=== PATIENT | male | born 1955 | race Caucasian/White ===

== ENCOUNTER 2016-06-09 14:24 | Emergency (ER) | payer MEDICARE, BC ==
[2016-06-09 15:36] LABS: Basophils # (A) 0.1 k/uL (0-0.2); Basophils % (A) 1 %; CH 27.7; CHCM 35.2; Eosinophils # (A) 0.2 k/uL (0-0.7); Eosinophils % (A) 3 %; HCT 43.1 % (39.0-53.0); HDW 3.07; HGB 14.5 gm/dL (13.0-17.5); Luc # (Auto) 0.17; Luc % (Auto) 3; Lymphocytes # (A) 0.8 k/uL (1.0-4.8); Lymphocytes % (A) 14 %; MCH 26.7 pg (25.0-35.0); MCHC 33.7 g/dL (31.0-37.0); MCV 79.3 fL (80.0-100.0); Mean Platelet Volume 7.3; Monocytes # (A) 0.5 k/uL (0-1.0); Monocytes % (A) 9 %; Neutrophils # (A) 3.7 k/uL (1.3-7.7); Neutrophils % (A) 70 %; RBC 5.43 m/uL (4.30-5.90); RDW 13.5 % (11.5-15.5); WBC 5.3 k/uL (3.8-10.6); WBC (Perox) 4.97
--- NOTE | 2016-06-09 15:39 | XR ---
EXAMINATION TYPE: XR chest 2V DATE OF EXAM: 06/09/2016 3:34 PM COMPARISON: NONE TECHNIQUE: PA and lateral views submitted. HISTORY: Shortness of breath FINDINGS: Chronic rib deformities are seen. Arthropathy of the shoulders. Findings are suspicious for a 1.5 cm left upper lobe lung mass. Subsegmental left perihilar consolidation seen. No pleural effusion or pne umothorax. IMPRESSION: 1. Left perihilar infiltrate with findings suspicious for a vague mass in the left upper lobe. Recomm end CT of the chest.
[2016-06-09 15:46] LABS: Anion Gap 15 mmol/L; Blood Urea Nitrogen 23 mg/dL (9-20); Calcium 9.6 mg/dL (8.4-10.2); Carbon Dioxide 27 mmol/L (22-30); Chloride 104 mmol/L (98-107); Glucose 95 mg/dL (74-99); Magnesium 1.9 mg/dL (1.6-2.3); Non-African American GFR(MDRD) 52 (>60 ml/min/1.73 sqM); Potassium 3.9 mmol/L (3.5-5.1); Sodium 146 mmol/L (137-145)
[2016-06-09 15:59] LABS: Appearance,Urine Clear (Clear); Bilirubin,Urine Negative (Negative); Glucose,Urine (UA) Negative (Negative); Ketones,Urine Negative (Negative); Leukocyte Esterase,Urine Negative (Negative); Nitrite,Urine Negative (Negative); Protein,Urine Trace (Negative); Specific Gravity,Urine 1.017 (1.001-1.035); UA Billing (MACRO vs. MICRO) CHEM; Urobilinogen,Urine <2.0 mg/dL (<2.0)
[2016-06-09] MEDS ORDERED: AZITHROMYCIN 500 MG in SODIUM CHLORIDE 0.9% 250 ML IVPB STA (16:27)
[2016-06-09 16:30] VITALS: RESP 16
[2016-06-09] MEDS ORDERED: SODIUM CHLORIDE 0.9% 1,000 ML IV ONE (16:42)
--- NOTE | 2016-06-09 16:42 | ED ---
General Adult HPI - General Chief complaint: Upper Respiratory Infection Stated complaint: Fluid on lungs Time Seen by Provider: 06/09/16 14:55 Source: patient, RN notes reviewed Mode of arrival: ambulatory Limitations: no limitations - History of Present Illness Initial comments: 60-year-old male presenting for shortness breath. Patient states that he has had cough and shortness of breath and fevers and chills for the past 5 days. He states he followed up at an urgent care today who did chest x-ray with abnormality and recommended he go to the ER for further evaluation. He denies any chest pain associated. States he did have a flu swab at the urgent care which was negative. He also states that over the past 2-3 weeks he has had bilateral lower extremity swelling. He denies any history of COPD or CHF. He denies any tobacco use. He denies any recent antibiotic or steroid use. - Related Data Home Medications Medication Instructions Recorded Confirmed Aspirin 81 mg PO DAILY 12/11/15 06/09/16 Labetalol HCl [Trandate] 300 mg PO BID 12/11/15 06/09/16 Lisinopril-Hctz 20-25 mg 1 tab PO DAILY 12/11/15 06/09/16 [Zestoretic 20-25] [place]-3 Fatty Acids/Fish Oil [Fish 1 tab PO DAILY 12/11/15 06/09/16 Oil 1,000 mg Softgel] amLODIPine BESYLATE [Norvasc] 5 mg PO HS 12/11/15 06/09/16 Previous Rx's Medication Instructions Recorded Azithromycin [Zithromax] 250 mg PO DAILY #4 tab 06/09/16 Allergies Allergy/AdvReac Type Severity Reaction Status Date / Time codeine AdvReac Nausea & Verified 06/09/16 15:27 Vomiting metoclopramide HCl AdvReac Nausea & Verified 06/09/16 15:27 [From Reglan] Vomiting Review of Systems ROS Statement: Those systems with pertinent positive or pertinent negative responses have been documented in the HPI. ROS Other: All systems not noted in ROS Statement are negative. Past Medical History Past Medical History: Hypertension, Sleep Apnea/CPAP/BIPAP Additional Past Medical History / Comment(s): kidney stones, uses CPAP History of Any Multi-Drug Resistant Organisms: None Reported Past Surgical History: Orthopedic Surgery Additional Past Surgical History / Comment(s): right knee surg. Past Anesthesia/Blood Transfusion Reactions: No Reported Reaction Past Psychological History: No Psychological Hx Reported Smoking Status: Never smoker Past Alcohol Use History: None Reported Past Drug Use History: None Reported - Past Family History Mother Family Medical History: No Reported History General Exam - General Exam Comments Initial Comments: General: Awake and Alert. No acute distress. Does not appear acutely ill. Eyes: MONIKA, EOM intact. No nystagmus. No scleral icterus. HENT: Atraumatic, normocephalic. Mucous membranes moist. Trachea midline. Neck: The neck is supple, there is no tenderness or JVD. Cardiovascular: Regular rate and rhythm. No murmur, rub, or gallop is appreciated. Distal pulses intact. Lateral lower extremity edema 1+ pitting. Respiratory: Lungs are clear to auscultation bilaterally. No wheezes, rales. Left-sided rhonchi. No respiratory distress. Gastrointestinal: Soft, Nontender. No rebound or guarding. Non-distended. No masses or organomegaly noted. No CVA tenderness. Musculoskeletal: No tenderness. Normal ROM. No gross deformity. No strength deficits. Neurological: A&Ox3. CN II-XII grossly intact, There are no obvious motor or sensory deficits. Coordination appears grossly intact. Speech is normal. Skin: Skin is warm and dry and no rashes or lesions are noted. Psychiatric: Cooperative, appropriate mood & affect, normal judgment. Limitations: no limitations Course Vital Signs 06/09/16 06/09/16 14:44 16:28 Temperature 99.1 F 99.1 F Pulse Rate 90 76 Respiratory 18 16 Rate Blood Pressure 105/63 124/77 O2 Sat by Pulse 97 97 Oximetry EKG Findings - EKG Comments: EKG Findings:: EKG 15:53. Normal sinus rhythm. Rate 67. IL 184. QRS 86. QT/ QTC 370/390. Normal axis. No STEMI. Nonspecific EKG. Medical Decision Making - Medical Decision Making 60-year-old male presenting for cough and fevers. Vitals stable on initial exam. No acute respiratory distress. History concerning for pneumonia. Urgent care note states possible mass in the chest and chest x-ray requiring further follow-up. Chest x-ray with abnormal finding recommending CT follow-up. CT chest was performed showing left lower lobe pneumonia. There is an incidental pulmonary nodule as well. Lab work is stable CBC. BMP with mild abnormality and evidence of a care, likely secondary to hypovolemia given IVF during course in ED. Single troponin was negative and setting of possible sepsis evaluation. BNP is negative. Patient reevaluated states he is feeling well. Updated on results and imaging. Discussed CT findings of incidental aortic aneurysm and pulmonary nodule and need for repeat chest x-ray in 6 months to reevaluate. Discussed evidence of pneumonia and plan for treatment. Patient started on antibiotics for CAP in the ED. He has no significant risk factors for HCAP at this time. He does not appear septic or hypoxic requiring admission at this time. Patient is agreeable with plan for discharge home. Discussed concerning signs symptoms for immediate return to the ED. Discussed close PCP follow-up for further management of mild LE swelling. Low suspicion of DVT/PE at this time given history of LE swelling in the past, although discussed no specific testing on CT for this at this time. Patient is agreeable to plan and discharge home. - Lab Data Result diagrams: 06/09/16 15:20 06/09/16 15:20 Lab Results 06/09/16 06/09/16 06/09/16 Range/Units 15:20 15:20 15:20 WBC 5.3 (3.8-10.6) k/uL RBC 5.43 (4.30-5.90) m/uL Hgb 14.5 (13.0-17.5) gm/dL Hct 43.1 (39.0-53.0) % MCV 79.3 L (80.0-100.0) fL MCH 26.7 (25.0-35.0) pg MCHC 33.7 (31.0-37.0) g/dL RDW 13.5 (11.5-15.5) % Plt Count 271 (150-450) k/uL Neutrophils % 70 % Lymphocytes % 14 % Monocytes % 9 % Eosinophils % 3 % Basophils % 1 % Neutrophils # 3.7 (1.3-7.7) k/uL Lymphocytes # 0.8 L (1.0-4.8) k/uL Monocytes # 0.5 (0-1.0) k/uL Eosinophils # 0.2 (0-0.7) k/uL Basophils # 0.1 (0-0.2) k/uL Sodium 146 H (137-145) mmol/L Potassium 3.9 (3.5-5.1) mmol/L Chloride 104 (98-107) mmol/L Carbon Dioxide 27 (22-30) mmol/L Anion Gap 15 mmol/L BUN 23 H (9-20) mg/dL Creatinine 1.40 H (0.66-1.25) mg/dL Est GFR (MDRD) Af Amer >60 (>60 ml/min/1.73 sqM) Est GFR (MDRD) Non-Af 52 (>60 ml/min/1.73 sqM) Glucose 95 (74-99) mg/dL Calcium 9.6 (8.4-10.2) mg/dL Magnesium 1.9 (1.6-2.3) mg/dL Troponin I (0.000-0.034) ng/mL NT-Pro-B Natriuret Pep 45 pg/mL Urine Color Urine Appearance (Clear) Urine pH (5.0-8.0) Ur Specific [place] (1.001-1.035) Urine Protein (Negative) Urine Glucose (UA) (Negative) Urine Ketones (Negative) Urine Blood (Negative) Urine Nitrite (Negative) Urine Bilirubin (Negative) Urine Urobilinogen (<2.0) mg/dL Ur Leukocyte Esterase (Negative) 06/09/16 06/09/16 Range/Units 15:20 15:42 WBC (3.8-10.6) k/uL RBC (4.30-5.90) m/uL Hgb (13.0-17.5) gm/dL Hct (39.0-53.0) % MCV (80.0-100.0) fL MCH (25.0-35.0) pg MCHC (31.0-37.0) g/dL RDW (11.5-15.5) % Plt Count (150-450) k/uL Neutrophils % % Lymphocytes % % Monocytes % % Eosinophils % % Basophils % % Neutrophils # (1.3-7.7) k/uL Lymphocytes # (1.0-4.8) k/uL Monocytes # (0-1.0) k/uL Eosinophils # (0-0.7) k/uL Basophils # (0-0.2) k/uL Sodium (137-145) mmol/L Potassium (3.5-5.1) mmol/L Chloride (98-107) mmol/L Carbon Dioxide (22-30) mmol/L Anion Gap mmol/L BUN (9-20) mg/dL Creatinine (0.66-1.25) mg/dL Est GFR (MDRD) Af Amer (>60 ml/min/1.73 sqM) Est GFR (MDRD) Non-Af (>60 ml/min/1.73 sqM) Glucose (74-99) mg/dL Calcium (8.4-10.2) mg/dL Magnesium (1.6-2.3) mg/dL Troponin I <0.012 (0.000-0.034) ng/mL NT-Pro-B Natriuret Pep pg/mL Urine Color Yellow Urine Appearance Clear (Clear) Urine pH 5.0 (5.0-8.0) Ur Specific [place] 1.017 (1.001-1.035) Urine Protein Trace H (Negative) Urine Glucose (UA) Negative (Negative) Urine Ketones Negative (Negative) Urine Blood Negative (Negative) Urine Nitrite Negative (Negative) Urine Bilirubin Negative (Negative) Urine Urobilinogen <2.0 (<2.0) mg/dL Ur Leukocyte Esterase Negative (Negative) - EKG Data -: EKG Interpreted by Ct EKG shows normal: sinus rhythm Rate: normal - Radiology Data Radiology results: report reviewed, image reviewed Disposition Clinical Impression: CAP (community acquired pneumonia), Pulmonary nodule Disposition: HOME SELF-CARE Condition: Stable Instructions: Community Acquired Pneumonia (ED) Additional Instructions: You had incidental findings on your CT scan of the chest of an acending aortic aneurysm and pulmonary nodule. Please follow up with your primary doctor to monitor these findings as discussed. Prescriptions: Azithromycin [Zithromax] 250 mg PO DAILY #4 tab Referrals: Riccardo Dan MD [Primary Care Provider] - 1-2 days Time of Disposition: 18:30
--- NOTE | 2016-06-09 17:09 | CT ---
EXAMINATION TYPE: CT chest wo con DATE OF EXAM: 06/09/2016 4:57 PM COMPARISON: Radiograph same day HISTORY: 60-year-old male chest congestion. TECHNIQUE: Contiguous axial scanning of the chest without IV contrast. Coronal and sagittal reconstru ctions performed. CT DLP: 656.00 mGycm Automated exposure control for dose reduction was used. FINDINGS: The heart is borderline enlarged without pericardial effusion. Ascending aorta ectatic at 3.7 cm. Conventional arch vessel branching anatomy. There is aneurysm of t he upper descending thoracic aorta at 3.6 cm and ectasia of the lower descending thoracic aorta at 2. 8 cm. No thoracic lymphadenopathy by CT size criteria. Strandy atelectasis or scarring at the basilar anterior right middle lobe. There is additional strand y atelectasis or scarring posterior right upper lung but with focal consolidation superior segment le ft lower lobe, axial images 22 through 25. 5 mm pulmonary nodule posterior left lower lobe axial image 36 which should be reassessed at follow-u p. Small hiatal hernia. Visualized upper abdomen shows a 1.2 cm left adrenal gland nodule with density of -12 Hounsfield unit s compatible with a lipid rich adrenal adenoma. Hilar splenule. Bones: Bridging anterior endplate spondylosis especially within the mid to lower thoracic spine sugge stive of DISH. Multiple chronic right-sided rib fracture deformities healed in varying degrees of dis placement. IMPRESSION: 1. STRANDY AREAS OF ATELECTASIS OR SCARRING WITHIN THE LUNGS THOUGH WITH FOCAL CONSOLIDATION WITHIN T HE SUPERIOR SEGMENT LEFT LOWER LOBE SUSPICIOUS FOR PNEUMONIA. 2. A 5 MM LEFT LOWER LOBE PULMONARY NODULE. SIX-MONTH FOLLOW-UP EXAM RECOMMENDED TO REASSESS. 3. 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 4. SMALL HIATAL HERNIA AND A 1.2 CM BENIGN LEFT ADRENAL ADENOMA.
[2016-06-09 19:25] VITALS: BP 129/74; PULSE 78; TEMP 98.9
== END 2016-06-09 19:24 | disposition home or self-care (01) ==
LOC: EC 14:24
DX: J18.9 Pneumonia, unspecified organism (principal); R91.1 Solitary pulmonary nodule; I71.9 Aortic aneurysm of unspecified site, without rupture; I10 Essential (primary) hypertension; M79.89 Other specified soft tissue disorders; Z79.82 Long term (current) use of aspirin; Z79.899 Other long term (current) drug therapy; Z88.5 Allergy status to narcotic agent; Z88.8 Allergy status to other drugs, medicaments and biological substances
CPT/HCPCS: 36415; 93005; 83880; 80048; 83735; 84484; 85025; 81003; 71020; 71250; 99284; 96365; 96366; 96367; J0456; J0696